=== PATIENT | male | born 1940 | race Caucasian/White ===

== ENCOUNTER → 2016-05-17 | Outpatient (CLI) | payer OTHER, BC ==
[~2016-05-17] VITALS: Ht 177.8 cm; Wt 80.7 kg
[~2016-05-17] MED LIST: ASPIRIN81 M2 PO; CRESTOR20 MG PO; FIBERCON625 MG PO; FLUNISOLIDE25 ML BOTH NARES; MICARDIS HCT1 TABLET PO; MULTIPLE VITAM1 EACH PO; NORVASC10 MG PO; OLOPATADINE HCL5 ML BOTH EYES; PLAVIX75 MG PO; ZYRTEC10 M2 PO
== END | disposition home or self-care (01) ==
LOC: AMB 11:48
PROC: B245ZZ4 Ultrasonography of Left Heart, Transesophageal (ICD-10-PCS; principal; 2016-05-17)
DX: Q21.1 Atrial septal defect (principal); R94.31 Abnormal electrocardiogram [ECG] [EKG]; Z86.73 Personal history of transient ischemic attack (TIA), and cerebral infarction without residual deficits; I10 Essential (primary) hypertension; E78.5 Hyperlipidemia, unspecified; R53.83 Other fatigue
CPT/HCPCS: 93312; J2250; J3010